=== PATIENT | female | born 1995 ===

== ENCOUNTER → 2024-09-21 07:30 | Outpatient (REF) | payer BC, SELFPAY | LOC: CLAB 07:30 | PROVIDERS: ATTENDING PHYSICIAN Otolaryngology | DX: J35.01 Chronic tonsillitis (principal); R07.0 Pain in throat | CPT/HCPCS: 88304 ==

== ENCOUNTER 2024-09-29 03:53 | Emergency (ER) | payer BC, SELFPAY ==
[2024-09-29 03:57] VITALS: BP 129/93
--- NOTE | 2024-09-29 05:33 | ED.GENMED ---
History of Present Illness
<JUAN Herrera - Last Filed: 09/29/24 06:51>
General
Chief Complaint: Post Operative Problem(s)
Source: patient
Time Seen by Provider: 09/29/24 05:24
Nursing documentation reviewed up to this point in time: agreed with
History of Present Illness
History of Present Illness:
Pt is 28 yo F who presents to the emergency department and is post/op from a tonsillectomy on 09/21. Pt presents today due to having pain. Pt states that the pain is a 10/10 and located behind her ears. Pt reports that the pain has been constant
since having the surgery. Pt also reports that she is having trouble swallowing and pain when swallowing. Pt reports she has been taking oxycodone, Tylenol, and Motrin since being at home after the surgery. She reports that the last oxycodone she
took was at 10am yesterday. Pt denies fever, chills, N/V, chest pain, shortness of breath.
Review of Systems
<JUAN Herrera - Last Filed: 09/29/24 06:51>
Review of Systems
Allergies reviewed?: Yes
Constitutional: Reports no symptoms
EENT: Reports sore throat and mouth pain
Respiratory: Reports no symptoms
Cardiac: Reports no symptoms
ABD/GI: Reports no symptoms
Skin: Reports no symptoms
Neurological: Reports no symptoms
Phy Exam
<JUAN Herrera - Last Filed: 09/29/24 06:51>
General Physical Exam
General Presentation: well appearing and no apparent distress
General age: appears stated age
General Skin: warm
General Habitus: normal
General Mental: alert
General Hydration: appears well hydrated
ENT Exam
ENT Exam: pharynx normal
Additional ENT: Buccal mucosa is moist with no erythema
Cardiovascular Exam
Cardiovascular Exam: regular rate/rhythm
Pulmonary Exam
Pulmonary Exam: lungs clear
Course
<ST SharonPA - Last Filed: 09/29/24 06:51>
Orders/Labs/Results
Orders:
Orders
09/29/24 05:37
0.9% Sodium Chloride 1000 ml [Nss] 1,000 ml IV BOLUS
09/29/24 05:43
Ketorolac [Toradol] 30 mg IV NOW STA
09/29/24 05:44
Dexamethasone Sod Phosphate [Decadron] 10 mg IV NOW STA
Vital Signs
Initial and Last Documented VS:
Initial Vital Signs
Temp Pulse Resp BP Pulse Ox
97.9 F 88 20 129/93 100
09/29/24 03:57 09/29/24 03:57 09/29/24 03:57 09/29/24 03:57 09/29/24 03:57
Last Documented Vital Signs
Temp Pulse Resp BP Pulse Ox
97.9 F 78 20 140/70 98
09/29/24 03:57 09/29/24 06:38 09/29/24 06:38 09/29/24 06:05 09/29/24 06:38
<Marie Cervantes DO - Last Filed: 09/29/24 07:05>
Orders/Labs/Results
Orders:
Orders
09/29/24 05:37
0.9% Sodium Chloride 1000 ml [Nss] 1,000 ml IV BOLUS
09/29/24 05:43
Ketorolac [Toradol] 30 mg IV NOW STA
09/29/24 05:44
Dexamethasone Sod Phosphate [Decadron] 10 mg IV NOW STA
Vital Signs
Initial and Last Documented VS:
Initial Vital Signs
Temp Pulse Resp BP Pulse Ox
97.9 F 88 20 129/93 100
09/29/24 03:57 09/29/24 03:57 09/29/24 03:57 09/29/24 03:57 09/29/24 03:57
Last Documented Vital Signs
Temp Pulse Resp BP Pulse Ox
97.9 F 78 20 140/70 98
09/29/24 03:57 09/29/24 06:38 09/29/24 06:38 09/29/24 06:05 09/29/24 06:38
<JUAN Herrera - Last Filed: 09/29/24 06:51>
*Critical Care Note
Total Time (30-74mins, 75-104mins- exclusive of procedures): Not Applicable
ED Attending Note
<JUAN Herrera - Last Filed: 09/29/24 06:51>
-
Portions of this chart may have been created with voice recognition software.� Occasional wrong word or��sound alike� substitutions may have occurred due to the inherent limitations of voice recognition software.
<Marie Cervantes DO - Last Filed: 09/29/24 07:05>
ED Attending Note
Patient seen and examined by attending physician: Yes
I performed the substantive portion of visit, reviewed & personally made and approve the management plan that is documented in note by myself or EUGENE.: Yes
ED Attending Note:
This is a 28-year-old female who underwent tonsillectomy September 21. Prescribed Percocet 5/325 number 30 tablets on September 21 and then prescribed Vicodin 7.5 mg, number 30 tablets September 23. Along with this she has been taking sporadic doses
of Tylenol as well as ibuprofen 400 mg.
She complains of persistent significant posterior throat pain, painful swallowing but has been able to swallow, she has not had a fever, no nausea nor vomiting, no chest nor abdominal pain. She has had no post tonsillar bleeding.
Her last dose of Percocet was yesterday morning, 24 hours ago. She does have a few Percocet left as well as Vicodin left in her prescription.
GENERAL: 28-year-old female appears her stated age, awake and alert, pleasant, appears in no acute distress. Mildly muffled voice. Handling secretions well. Afebrile. Vital signs within normal limits.
EYE: pupils equal and reactive. anicteric
NECK: Supple, nontender, no meningismus, no significant adenopathy.
ENT: Bilateral tonsillar fossa eschar are intact. No significant edema, oral mucosa is moist. TM clear b/l, nares patent.
CARDIAC: Regular rate and rhythm. no murmur.
LUNGS: Clear breath sounds bilaterally, no acute respiratory distress, no wheezes/rales/rhonchi
ABDOMEN: Soft, nondistended, without focal tenderness, no r/g, no cvat. normoactive BS.
NEUROLOGICAL: Alert and oriented x3, no focal neuro deficits. Gait is steady.
SKIN: Warm and dry, normal color, skin intact. No rash.
MUSCULOSKELETAL: No C/C/E. peripheral pulses are full and equal b/l. No palpable tenderness.
PSYCH: Normal and appropriate interaction.
Patient presents with post tonsillectomy throat pain which had been fairly well-controlled with narcotic pain medication and I suspect she had been feeling better as she has not had a dose of Percocet nor Vicodin since yesterday morning. Admits
that pain is worse at nighttime.
Overall nontoxic in appearance, oral mucosa is moist, vital signs within normal limits. Posterior pharynx without significant edema nor erythema. Tonsillar fossa eschar intact.
Will initiate IV fluids and give an IV dose of Toradol as well as one-time dose of Decadron.
Overall well in appearance and with no evidence of dehydration on exam, afebrile and reassuring vital signs, no indication for laboratory studies.
09/29/2024 0704 AM
Patient resting comfortably, reports significant relief in pain.
Will discharge to home with recommendation she touch base with her ENT specialist today.
Supportive measures discussed.
Discharge Plan
Departure
Patient Disposition: Home (Routine Discharge)
Date of Disposition: 09/29/24
Time of Disposition: 06:58
Patient with high blood pressure during this ER visit?: No
Condition: Good
Discharge Problem:
Post-operative pain
Instructions: Tonsillectomy (DC), Diet After Mouth or Throat Surgery
Prescriptions:
No Action
Celexa
20 mg PO DAILY
Motrin
400 mg PO Q6H
Ozempic
0.25 mg SC WEEKLY
Tylenol
650 mg PO Q6H
Referrals:
PRIVATE,PHYSICIAN [Family Provider] -
Activity Restrictions/Additional Instructions:
Continue clear liquids, soft diet.
Elevate head of bed at nighttime.
Continue Tylenol as well as ibuprofen 4 times daily and continue narcotic pain medication as prescribed by your ENT specialist.
Call your ENT specialist today regarding follow-up and prescription refills.
Interventions
Interventions:
*Risk Screen - Suicide Last Done: 09/29/24 03:57
*General Assessment Last Done: 09/29/24 03:57
*Neglect/Abuse Screening Last Done: 09/29/24 03:57
ED- Fall Risk Assessment Last Done: 09/29/24 04:49
*ED COVID-19 Vaccine History Last Done: 09/29/24 04:02
ED-EENT Assessment Last Done: 09/29/24 04:49
ED- Pulmonary Assessment Last Done: 09/29/24 04:49
ED-Skin Assessment Last Done: 09/29/24 04:49
Discharge Date and Time
Print Language: MALAWIAN
[2024-09-29] MEDS: DECADRON 10 MG IV (05:57)
[2024-09-29] MEDS: TORADOL 30 MG IV (05:57)
[2024-09-29] MEDS: NSS 1000 IV (05:57)
[2024-09-29 06:05] VITALS: BP 140/70
[2024-09-29 07:22] VITALS: BP 128/92
== END 2024-09-29 07:24 | disposition home or self-care (01) ==
LOC: EMR 03:53
PROVIDERS: EMERGENCY PHYSICIAN Emergency Medicine
DX: G89.18 Other acute postprocedural pain (principal); R07.0 Pain in throat
CPT/HCPCS: 96374; 96375; 96361; 99284